=== PATIENT | male | born 1945 | race Caucasian/White ===

== ENCOUNTER 2021-05-21 13:17 | Emergency (ER) | payer MEDICARE, SELFPAY ==
--- NOTE | ~2021-05-21 | XR_ITS ---
EXAMINATION: XR chest 2V DATE: 05/21/2021 13:51 INDICATION: Cough TECHNIQUE: PA and lateral views of the chest were obtained. COMPARISON: None FINDINGS: The lungs are clear with no focal airspace opacities, pulmonary edema, pleural effusion or pneumothor ax. The cardiomediastinal silhouette is normal. Mild thoracic spondylosis. IMPRESSION: 1. No acute cardiopulmonary disease. Reviewed, dictated and finalized at location A. T AND PEDIATRIC NEUROLOGIST
[2021-05-21 13:29] VITALS: BP 124/63; PULSE 65; RESP 18; TEMP 36.3; O2SAT 99
--- NOTE | 2021-05-21 13:43 | ED.GENADULT ---
HPI - General Adult General Chief complaint: Upper Respiratory Infection Stated complaint: congestion,cough Time Seen by Provider: 05/21/21 13:22 Source: patient Mode of arrival: ambulatory Limitations: no limitations History of Present Illness HPI narrative: Patient presents for evaluation of productive cough of green sputum. Two days ago he had a sore throat and some postnasal drainage. He states symptoms progressively worsened. He reports orthopnea. No fever, chills, nausea, vomiting, diarrhea. He had some right sided chest pain that he describes as angina about two weeks ago, but has not had any since that time. He has an underlying hx of hypertension, hyperlipidemia, diabetes, CAD status post CT and 2 stents approximately 23 years ago. 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 He took a home COVID test yesterday which was negative. He has never had COVID before. He has received both doses of his [employer] COVID vaccine. No recent sick contacts to his knowledge. He is not taking any medications to assist with his symptoms. He does not smoke. He states he has had pneumonia in past so came in for further evaluation. Related Data Home Medications Medication Instructions Recorded Confirmed aspirin [Adult Low Dose Aspirin] 81 mg PO DAILY 05/19/21 05/21/21 atorvastatin 80 mg PO HS 05/19/21 05/21/21 cholecalciferol (vitamin D3) 25 mcg PO DAILY 05/19/21 05/21/21 hydrochlorothiazide 25 mg PO DAILY 05/19/21 05/21/21 latanoprost 1 drp EACH EYE HS 05/19/21 05/21/21 losartan 100 mg PO DAILY 05/19/21 05/21/21 metformin 500 mg PO BID 05/19/21 05/21/21 nifedipine 60 mg PO DAILY 05/19/21 05/21/21 propranolol 40 mg PO BID 05/19/21 05/21/21 Allergies Allergy/AdvReac Type Severity Reaction Status Date / Time lisinopril Allergy Mild Sinus cold Verified 05/21/21 13:47 Review of Systems Review of Systems: CONSTITUTIONAL: Denies fever, chills, or sweats. EYES: Denies visual changes, redness, or discharge. ENT: Reports sinus congestion, postnasal drainage, sore throat. CARDIOVASCULAR: Reports recent chest pain, none currently. Denies palpitations, or edema. RESPIRATORY: Reports cough and orthopnea GASTROINTESTINAL: Denies abdominal pain, nausea, vomiting, or diarrhea. GENITOURINARY: Denies dysuria or hematuria. SKIN: Denies rash or itching. MUSCULOSKELETAL: Reports mild body aches NEUROLOGIC: Denies headache, numbness, dizziness, or weakness. PSYCHIATRIC: Denies anxiety or depression. [facility] Past Medical History Medical History (Updated 05/21/21 @ 14:11 by CALEB TateP, ) Abnormal colonoscopy 12/20 2 polyps Repeat 12/23 Coronary artery disease Diabetes Hyperlipidemia Hypertension Myocardial infarction Surgical History Surgical History History of heart artery stent Family History Family History Mother Family history non-contributory Social History Social History Smoking status: Never smoker Alcohol intake: current Drinks per week: 1 Substance use: never Living arrangements: with family Gender identity (if verbalized by the patient): Male Sexual Orientation (if Verbalized by the Patient): Straight or Heterosexual Spiritual care concerns: No Exam Narrative: GENERAL: Well-appearing, well-nourished, and in no acute distress. HEAD: Normocephalic, atraumatic. EYES: PERRLA and EOMI. ENT: Nares clear, no rhinorrhea or epistaxis. Mucous membranes moist. Mild posterior pharyngeal erythema. Oropharynx without tonsillar hypertrophy exudate or other lesions. Bilateral TMs pearly perez nonbulging NECK: Supple. No adenopathy or masses. No carotid bruits or JVD CHEST: Clear to auscultation. No respiratory distress. No wheezes rales or rhonchi HEART: Regular rate and rhythm. No murmur heard. Normal peripheral
== END 2021-05-21 14:15 | disposition home or self-care (01) ==
PROVIDERS: Emergency Provider Nurse Practitioner; PCP Family Medicine Adolescent Medicine
DX: J06.9 Acute upper respiratory infection, unspecified (principal); Z20.822 Contact with and (suspected) exposure to COVID-19; E11.9 Type 2 diabetes mellitus without complications; I25.10 Atherosclerotic heart disease of native coronary artery without angina pectoris; E78.5 Hyperlipidemia, unspecified; I10 Essential (primary) hypertension; I25.2 Old myocardial infarction; Z79.82 Long term (current) use of aspirin
CPT/HCPCS: 71046; 87081; 87426; 87880; 99213; C9803; G0463

== ENCOUNTER 2021-06-09 01:39 | Day surgery (SDC) | payer MEDICARE, SELFPAY ==
--- NOTE | 2021-05-19 14:39 | PC.NURSE ---
Report to the Outpatient Waiting Room, entrance under the green pavilion located off [facility], at time __1130 on date _05/26/21 . OR Time: __1230 . - You and your visitor will be asked a series of questions to screen for COVID 19 for your protection. - A mask is required within the hospital. Preoperative COVID Testing Requirements: No COVID Test needed if: (proof is required; if not received patient will have Rapid Test prior to entry) - Patient has received COVID Vaccine at least 14 days prior to procedure date or - Patient has positive COVID test result within last 90 days of surgery date. COVID Test needed if above criteria is not met If not COVID vaccinated a COVID test must be conducted within 72 hours of surgery and patient is asked to isolate self from time of testing until procedure. You will go to the [employer] [facility] for your COVID testing. The [employer] [facility] is located at the corner of [address] [facility]. You will only be called if COVID results are positive and your surgeon may reschedule your elective surgery date. -LIGHT BREAKFAST IN THE MORNING Take the following medications with a SIP of water the morning of surgery: ____ALL ROUTINE AM MEDICATIONS Medications to discontinue per physician NONE Date to take last dose Please no make-up, nail german, hairspray, perfume, deodorant, or body powder the day of surgery. No jewelry (including any body piercings) or valuables the day of surgery, leave them at home. Please take a shower or bath the night before, or the morning of, surgery with an antibacterial soap. Wear comfortable, loose fitting clothing. Children are encouraged to wear pajamas. - Jewelry must be removed prior to entering the operating room. Rings and piercings that are not removed may be cut off. - The hospital will not accept responsibility for valuables. - Please leave all valuables, including medications, at home the day of surgery. LOCAL ANESTHESIA-MAY DRIVE YOURSELF HOME For Pediatric surgeries, we recommend two adults accompany the child home (only one inside the building at this time). One visitor will be allowed to accompany the patient into the hospital. Patients visitor will be instructed to remain with patient at all times or leave the building. We will allow the visitor to come back to the postoperative area when patient is ready. Follow any additional instructions given to you from your surgeon. Telephone instructions given to ____PATIENT and asked if any additional questions and then verbalized understanding. Patient advised to call surgeon office or pre surgery nurse liaison [phone] if any additional questions.
[2021-05-19 14:42] VITALS: BMI 29.5
--- NOTE | 2021-06-01 10:55 | PC.NURSE ---
Report to the Outpatient Waiting Room, entrance under the green pavilion located off [facility], at time __10:00am on date 06/09/21 . OR Time: __11:00am . - You and your visitor will be asked a series of questions to screen for COVID 19 for your protection. - A mask is required within the hospital. Preoperative COVID Testing Requirements: No COVID Test needed if: (proof is required; if not received patient will have Rapid Test prior to entry) - Patient has received COVID Vaccine at least 14 days prior to procedure date or - Patient has positive COVID test result within last 90 days of surgery date. COVID Test needed if above criteria is not met If not COVID vaccinated a COVID test must be conducted within 72 hours of surgery and patient is asked to isolate self from time of testing until procedure. You will go to the [employer] [facility] for your COVID testing. The [employer] [facility] is located at the corner of [address] [facility]. You will only be called if COVID results are positive and your surgeon may reschedule your elective surgery date. Patients may have clear liquids (water, carbonated beverages, clear teas, apple juice) until 3 hours prior to surgery with a maximum of 20 ounces. - No food from midnight until time of surgery *LIGHT BREAKFAST MORNING OF SURGERY* - Infants may have breast milk until 4 hours before surgery, formula 6 hours prior to surgery. - Children will be allowed to drink immediately following surgery. If applicable, please bring a bottle or sippy cup to assist with drinking. Juice, water, soda, and popsicles are readily available. For infants on formula, please bring formula the day of surgery. Pacifiers are allowed. Take the following medications with a SIP of water the morning of surgery: ___ALL AM MEDS Medications to discontinue per physician NONE Date to take last dose Please no make-up, nail israeli, hairspray, perfume, deodorant, or body powder the day of surgery. No jewelry (including any body piercings) or valuables the day of surgery, leave them at home. Please take a shower or bath the night before, or the morning of, surgery with an antibacterial soap. Wear comfortable, loose fitting clothing. Children are encouraged to wear pajamas. - Jewelry must be removed prior to entering the operating room. Rings and piercings that are not removed may be cut off. - The hospital will not accept responsibility for valuables. - Please leave all valuables, including medications, at home the day of surgery. If you are going home after surgery, a licensed mobile lounge driver or operator must drive you home. MAY DRIVE SELF HOME-LOCAL ANESTHESIA ONLY - NO public transportation without another adult. - We recommend that an adult stay with you for 24 hours following discharge. - We also recommend that you do not drive, make important decision, drink alcoholic beverages, or take any drugs that were not prescribed by your health care provider for at least 24 hours after your discharge time. For Pediatric surgeries, we recommend two adults accompany the child home (only one inside the building at this time). One visitor will be allowed to accompany the patient into the hospital. Patients visitor will be instructed to remain with patient at all times or leave the building. We will allow the visitor to come back to the postoperative area when patient is ready. Follow any additional instructions given to you from your surgeon. Telephone instructions given to __PATIENT and asked if any additional questions and then verbalized understanding. Patient advised to call surgeon office or pre surgery nurse liaison [phone] if any additional questions.
[2021-06-09] VITALS (12 sets, daily range): BP systolic 127–151; BP diastolic 64–87; PULSE 57–62; RESP 16; TEMP 36.2; O2SAT 95–99
--- NOTE | 2021-06-09 07:10 | WPDHPUPDATE1 ---
History and Physical Update Update Date/Time: 06/09/21 07:10 History and Physical has been reviewed, including an updated exam of the patient. There are NO changes in the patient's condition. Risks, benefits, and alternatives have been discussed and questions answered. Patient agrees to proceed with procedure.
--- NOTE | 2021-06-09 08:32 | SUR.OPER ---
frozen section sent with Yessy WONG and received in pathology by Becca
--- NOTE | 2021-06-09 14:47 | W.PM.PROC2 ---
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 Post-op Diagnosis Same Procedure Performed 4 cm single specimen excision of SCC and SCIS of the nasal lobule and tip, with FS and complex repair 4.5 cm Surgeon Michael Faustin MD Operator And Truck Driver Preeti Acuña Anesthesia Local Indications Previous biopsy at both sites. Description of Procedure As the patient waited in the holding area the sites on his nose were marked with a pen. He agreed with those. They are very close together within a cm each other lying near the midline of the nose. He was rolled to the operating room where he was placed supine on the operating table. The face was prepped and draped in usual fashion. The tumor sites were carefully marked with a pen. His eyes were protected from lights with towels. The area was widely infiltrated with 1% lidocaine with epinephrine. During the procedure 2 or 3 times he expressed pain with use of cautery and additional lidocaine was infiltrated. Eventually he had no more discomfort. A careful excision was carried out encompassing the 2 longitudinally related biopsy areas. This excision was approximately 1 cm in maximum width tapering at both ends. The dissection was carried out to the base of the subcutaneous tissue. The specimen was marked with the suture at the caudal tip and sent for frozen section. The pathologist reported that there was a small focus of squamous cell carcinoma at the most caudal tip. A further excision widening and lengthening the tip was taken out and that specimen was sent to pathology for permanent section. Closure was accomplished by widely undermining the skin of both sides. This extended a cm and cm half on both sides running the length of the wound. By doing that we were able to approximate the wound margins with intradermal 4-0 Vicryl to close this wound essentially down the midline. The patient reported that he could breathe well through his nares when the approximation was completed. A dog ear was taken out at the cephalad end over the nasal bridge to improve contour. The skin was then closed with a running 6 0 nylon without difficulty. Estimated Blood Loss 10 Drains No Packing No Pathology Yes Complications No immediate complications Condition Stable Disposition Same day
== END 2021-06-09 09:36 | disposition home or self-care (01) ==
PROVIDERS: PCP Family Medicine Adolescent Medicine; Visit Provider Plastic Surgery
PROC: (CPT 13152; principal; 2021-06-09 07:30)
DX: C44.321 Squamous cell carcinoma of skin of nose (principal); L57.0 Actinic keratosis; Z79.82 Long term (current) use of aspirin; Z79.84 Long term (current) use of oral hypoglycemic drugs
CPT/HCPCS: 13152; 11644; 88305; 88331; 88332; A9270

== ENCOUNTER 2022-08-24 11:10 | Emergency (ER) | payer MEDICARE, SELFPAY ==
--- NOTE | ~2022-08-24 | XR_ITS ---
Cervical Spine: AP, lateral, oblique, open-mouth views Clinical History: Pain Findings: There is straightening of the normal cervical lordosis. No fracture or subluxation evident. There is advanced degenerative disc narrowing C5-C6. There is mild to moderate degenerative disc maria luz nge throughout the remainder of the cervical spine. There is mild facet arthropathy throughout most o f the cervical spine. Pre-vertebral soft tissues are unremarkable. Impression: Mild to moderate degenerative spondylosis, as above. Reviewed, dictated and finalized at location M. Impression: Mild to moderate degenerative spondylosis, as above.
--- NOTE | 2022-08-24 11:15 | ED.BACK ---
HPI - Back Pain/Injury General Chief Complaint: Neck Pain/Injury Stated Complaint: Neck Pain Time Seen by Provider: 08/24/22 11:39 Source: patient and RN notes reviewed Mode of arrival: ambulatory Limitations: no limitations History of Present Illness HPI Narrative: 76 year old male presents with concern for my pain that radiates to the right trapezius area. He reports he was gardening prior to onset of pain. Reports he felt his neck pop while gardening and lifting a heavy bag of rocks. He reports he did not have pain at that time. Reports he woke up the next day with pain in his neck. He reports he cannot turn his head to the right or the left without pain. Reports pain is less if he standing up. Reports he has been taking Tylenol and using a pain patch. He denies any weakness in any extremity. He denies change in numbness, tingling in the hands or fingers, he does have neuropathy. Patient reports similar problem that he was seen in the ER 4 years ago, had normal CT scan. Reports he took muscle relaxers and pain medicine used warm compresses and that pain eventually went away. MD elicited complaint: other (neck pain) Related Data Home Medications Medication Instructions Recorded Confirmed aspirin 81 mg tablet 81 mg PO HS 05/19/21 08/24/22 atorvastatin 80 mg tablet 80 mg PO HS 05/19/21 08/24/22 cholecalciferol (vitamin D3) 25 25 mcg PO DAILY 05/19/21 08/24/22 mcg (1,000 unit) tablet hydrochlorothiazide 25 mg tablet 25 mg PO DAILY 05/19/21 08/24/22 latanoprost 0.005 % eye drops 1 drp EACH EYE HS 05/19/21 08/24/22 losartan 100 mg tablet 100 mg PO DAILY 05/19/21 08/24/22 metformin 500 mg tablet 500 mg PO BID 05/19/21 08/24/22 nifedipine 60 mg tablet,extended 60 mg PO DAILY 05/19/21 08/24/22 release 24 hr Allergies Allergy/AdvReac Type Severity Reaction Status Date / Time lisinopril Allergy Mild Sinus cold Verified 08/24/22 11:30 Erythromycin Allergy Unknown Uncoded 08/24/22 11:31 Review of Systems Review of Systems: CONSTITUTIONAL: Denies malaise, chills, sweats, or fever. CARDIOVASCULAR: Denies chest pain, palpitations, or edema. RESPIRATORY: Denies cough or dyspnea. GASTROINTESTINAL: Denies abdominal pain, nausea, vomiting, diarrhea, loss of bowel function GENITOURINARY: Denies dysuria, hematuria, frequency, loss of bladder function. SKIN: Denies rash or itching. MUSCULOSKELETAL: Reports neck pain NEUROLOGIC: Denies numbness, weakness, or headache. All systems reviewed & are unremarkable except as noted in HPI and below PMFSH Past Medical History Medical History (Updated 08/24/22 @ 12:43 by Karen Arita NP) Abnormal colonoscopy 12/20 2 polyps Repeat 12/23 Myocardial infarction Surgical History Surgical History History of heart artery stent Family History Family History Mother Family history non-contributory Social History Social History Smoking status: Never smoker Alcohol intake: current Drinks per week: 1 Substance use: never Living arrangements: with family Gender identity (if verbalized by the patient): Male Sexual Orientation (if Verbalized by the Patient): Straight or Heterosexual Spiritual care concerns: No Comments At time of signature, agree with nursing past medical, surgical, social and family history. There is no relevant family history pertinent to the presenting complaint Exam Narrative: GENERAL: Well-appearing, well-nourished, and in no acute distress. HEAD: Normocephalic, atraumatic. EYES: PERRLA and EOMI. NECK: Supple. No lymphadenopathy. CHEST: Clear to auscultation. No respiratory distress. HEART: Regular rate and rhythm. Distal pulses palpable and equal, cap refill <3 seconds MUSCULOSKELETAL: Normal range of motion and strength in all extremities; 5/5 bilateral u
[2022-08-24 11:19] VITALS: BP 144/65; PULSE 57; RESP 18; TEMP 36.3; O2SAT 100
[2022-08-24 12:50] VITALS: PULSE 82; RESP 18; O2SAT 99
== END 2022-08-24 12:50 | disposition home or self-care (01) ==
PROVIDERS: Emergency Provider Nurse Practitioner; PCP Family Medicine Adolescent Medicine
DX: M54.2 Cervicalgia (principal); I25.2 Old myocardial infarction; Z95.5 Presence of coronary angioplasty implant and graft; Z79.82 Long term (current) use of aspirin
CPT/HCPCS: 72050; 99213; G0463

== ENCOUNTER 2023-08-22 13:27 | Outpatient (CLI) | payer MEDICARE, SELFPAY ==
[2023-08-22 14:44] LABS: Anion Gap 5 mmol/L (4-12); Blood Urea Nitrogen 19 mg/dL (9-20); Calcium 8.9 mg/dL (8.4-10.2); Carbon Dioxide 28 mmol/L (22-30); Chloride 106 mmol/L (98-107); Estimated Glomerular Filt Rate 49; Glucose 184 mg/dL (65-110); Potassium 3.4 mmol/L (3.4-5.0); Sodium 139 mmol/L (137-145)
== END 2023-08-22 13:28 | disposition home or self-care (01) ==
PROVIDERS: Anesthesiology; PCP Family Medicine Adolescent Medicine; Visit Provider Plastic Surgery
DX: E11.42 Type 2 diabetes mellitus with diabetic polyneuropathy (principal)
CPT/HCPCS: 36415; 80048

== ENCOUNTER 2023-09-03 04:35 | Day surgery (SDC) | payer MEDICARE, SELFPAY ==
--- NOTE | 2023-08-20 11:26 | PC.NURSE ---
Report to the Outpatient Waiting Room, entrance under the green pavilion located off [facility], at time __6:00 AM on date __09/03/23 . Planned Procedure Time: _7:30 AM . Time changes happen often and if your time is changed the preop area will call you the afternoon before. - You and your visitor will be asked to self-screen and do not enter if you have any COVID symptoms. - A mask is optional within the hospital at this time. Patients may have clear liquids (water, carbonated beverages, clear teas, apple juice) until 3 hours prior to surgery( 4:30 AM) with a maximum of 20 ounces. - No food from midnight until time of surgery - Infants may have breast milk until 4 hours before surgery, infant formula 6 hours prior to surgery. - Children will be allowed to drink immediately following surgery. If applicable, please bring a bottle or sippy cup to assist with drinking. Juice, water, soda, and popsicles are readily available. For infants on formula, please bring formula the day of surgery. Pacifiers are allowed. Take the following medications with a SIP of water the morning of surgery: ___NIFEDIPINE,PROPRANOLOL,ALPRAZOLAM IF NEEDED DO NOT STOP ANY OF YOUR OTHER PRESCRIPTION MEDICATIONS PRIOR TO SURGERY ?EXCEPT THE FOLLOWING Medications to discontinue per physician __MAY CONTINUE ASPIRIN PER DR JEROME. HOLD ALL VITAMINS 3 DAYS PRE OP.LAST DOSE 08/30/23 Date to take last dose Please no make-up, nail french, hairspray, perfume, deodorant, or body powder the day of surgery. No jewelry (including any body piercings) or valuables the day of surgery, leave them at home. Please take a shower or bath the night before, or the morning of, surgery with an antibacterial soap. Wear comfortable, loose fitting clothing. Children are encouraged to wear pajamas. - Jewelry must be removed prior to entering the operating room. Rings and piercings that are not removed may be cut off. - The hospital will not accept responsibility for valuables. - Please leave all valuables, including medications, at home the day of surgery. If you are going home after surgery, a licensed limo driver must drive you home. - NO public transportation without another adult if you receive anesthesia. - We recommend that an adult stay with you for 24 hours following discharge. - We also recommend that you do not drive, make important decision, drink alcoholic beverages, or take any drugs that were not prescribed by your health care provider for at least 24 hours after your discharge time. Follow any additional instructions given to you from your surgeon. If you or anyone in your household have experienced Covid symptoms in the past week, please notify your surgeon or the nurse liaison at the phone number below for possible testing. Telephone instructions given to ___PATIENT and asked if any additional questions and then verbalized understanding. Patient advised to call surgeon office or pre surgery nurse liaison [phone] if any additional questions. Report to the Outpatient Waiting Room, entrance under the green pavilion located off [facility], at time on date . Planned Procedure Time: . Time changes happen often and if your time is changed the preop area will call you the afternoon before. - You and your visitor will be asked to self-screen and do not enter if you have any COVID symptoms. - A mask is optional within the hospital at this time. Patients may have clear liquids (water, carbonated beverages, clear teas, apple juice) until 3 hours prior to surgery with a maximum of 20 ounces. - No food from midnight until time of surgery - Infants may have breast milk until 4 hours before surgery, infant formula 6 hours prior to surgery. - Children will be allowed to drink immediately following surgery. If applicable, please bring a bottle or sippy cup to assist with drin
[2023-08-20 11:34] VITALS: BMI 29.2
[2023-09-03] VITALS (7 sets, daily range): BP systolic 126–145; BP diastolic 61–76; PULSE 51–63; RESP 10–17; TEMP 36.1–36.2; O2SAT 95–100
[2023-09-03 06:43] LABS: Glucose Point of Care 145 mg/dl (65-105)
--- NOTE | 2023-09-03 07:11 | WPDHPUPDATE1 ---
History and Physical Update Update Date/Time: 09/03/23 07:11 History and Physical has been reviewed, including an updated exam of the patient. There are NO changes in the patient's condition. Risks, benefits, and alternatives have been discussed and questions answered. Patient agrees to proceed with procedure.
--- NOTE | 2023-09-03 07:12 | WPDANESEPPF ---
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 with Frozen Section and Full Thickness Skin Graft, Possible Ear Cartilage Graft - Michael Faustin MD Date/Time: 09/03/23 07:12 Surgeon: Michael Faustin MD Pre Op Diagnosis: SCIS Left Tip of Nose Patient Data Age: 77 Gender: M Height: 1.75 m Weight: 86.35 kg Last Vital Signs Temp 96.9 F L 09/03/23 07:00 Pulse 61 09/03/23 07:00 Resp 14 09/03/23 07:00 BP 145/73 H 09/03/23 07:00 Pulse Ox 98 09/03/23 07:00 O2 Del Method Room Air 09/03/23 07:00 Allergies Allergy/AdvReac Type Severity Reaction Status Date / Time lisinopril Allergy Mild Sinus cold Verified 09/03/23 07:13 Home Medications Medication Instructions Recorded Confirmed Type aspirin 81 mg tablet 81 mg PO HS 05/19/21 08/20/23 History atorvastatin 80 mg tablet 80 mg PO HS 05/19/21 08/20/23 History cholecalciferol (vitamin D3) 25 25 mcg PO DAILY 05/19/21 08/20/23 History mcg (1,000 unit) tablet hydrochlorothiazide 25 mg tablet 25 mg PO DAILY 05/19/21 08/20/23 History latanoprost 0.005 % eye drops 1 drp EACH EYE HS 05/19/21 08/20/23 History losartan 100 mg tablet 100 mg PO DAILY 05/19/21 08/20/23 History metformin 500 mg tablet 500 mg PO BID 05/19/21 08/20/23 History nifedipine 60 mg tablet,extended 60 mg PO DAILY 05/19/21 08/20/23 History release 24 hr tamsulosin 0.4 mg capsule 0.4 mg PO DAILY #30 caps 04/09/23 08/20/23 Rx propranolol 40 mg tablet 40 mg PO BID #180 tabs 06/06/23 08/20/23 Rx alprazolam 0.25 mg tablet 0.25 mg PO BID #60 tabs 07/31/23 08/20/23 Rx gabapentin 100 mg capsule 100 mg PO PRN PRN Pain 05/20/24 05/20/24 History Laboratory Tests 09/03/23 06:40 POC Capillary Glucose 145 H mg/dl (65-105) Patient hx anesthesia problems: none Family hx anesthesia problems: none Results Review: All pre-operative results and documents have been reviewed as part of the pre-operative evaluation. [facility] Past Medical History Medical History (Updated 09/06/22 @ 15:05 by Rafa Nevarez MD) Abnormal colonoscopy 12/20 2 polyps Repeat 12/23 Acute prostatitis Myocardial infarction Surgical History Surgical History History of heart artery stent Family History Family History Mother Family history non-contributory Social History Social History Smoking status: Never smoker Alcohol intake: current Drinks per week: 2 Substance use: never Living arrangements: with family Gender identity (if verbalized by the patient): Male Sexual Orientation (if Verbalized by the Patient): Straight or Heterosexual Spiritual care concerns: No Anes - Eval Final PreProcedure Day of Procedure 09/03/23 07:12 Patient weight: obese Heart: regular rate and rhythm Lungs: clear to auscultation Neurological: alert and oriented Last oral intake: >/= 8 hours ASA classification: III Emergent: no Anesthetic plan: proceed Anesthesia type and monitoring: general GIVS (use LMA) and standard monitoring Results Review: All pre-operative results and documents have been reviewed as part of the pre-operative evaluation. Informed Consent: The patient's anesthetic plan and its attendant risks and benefits were discussed with the patient/family/POA. Questions were solicited and answers provided to the satisfaction of the patient/family/POA.
[2023-09-03] MEDS: LIDO 1%/EPINEPHRINE 1:100,000 50 ML VIAL 12 ML INFILTRATE (07:26)
[2023-09-03] MEDS: BACITRACIN OINTMENT 15 GM TUBE 1 APPLIC TOPICAL (07:26)
[2023-09-03] MEDS: LACTATED RINGERS 1,000 ML 30 ML IV CONT (07:26)
[2023-09-03] MEDS: ceFAZolin 2 GM/D5W 50 ML 2 GM/50 ML BAG IVPB (07:55)
[2023-09-03 09:58] LABS: Glucose Point of Care 153 mg/dl (65-105)
--- NOTE | 2023-09-03 10:06 | W.PM.PROC2 ---
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 1.0 cm Excision SCC of the left nasal ala with FS and 1 sq cm FTSG. Surgeon Michael Faustin MD [employer] Supervisor Maintenance Amber Anesthesia MAC Indications Prior biopsy of SCIS of the tip and SCC of the left nasal ala. Findings Sebaceous hyperplasia at both sites. Description of Procedure The 2 recent biopsy sites on patient's nasal tip and left nasal ala were marked with this consent in the holding area. Sites for skin graft donor were discussed and he understands these may be at either pre mastoid region. He was taken to the operating room and placed supine on the operating table. His entire face and neck on both sides was prepped and draped in usual fashion. Was given IV sedation with LMA. The time-out was held and confirmed. The sites were wiped free of Betadine and estimated margins were marked on the tip and the left nasal ala. These areas were infiltrated with 1% lidocaine with epinephrine. The 1st specimen was taken from the left nasal tip at the caudal end of an existing scar. This was a full-thickness specimen taken into the subcutaneous fat. It was marked at the most superior aspect as 12 o'clock and sent to pathology for frozen section. The pathologist returned a report indicating no tumor present. In the meantime the 2nd specimen was incised from the left nasal ala in similar fashion and taken from the subcutaneous fat layer. The most superior aspect was once again marked for the 12 o'clock position. The specimen was sent to the pathologist for frozen section. The pathologist again returned a report showing no tumor present. In both cases he believes there is sebaceous hyperplasia present. The nasal tip wound was closed by undermining and approximating both wound margins near the midline and reducing standing cones. 4-0 Vicryl was placed intradermally and a running 5 0 nylon closed the skin. The left nasal ala wound was closed with a full-thickness skin graft taken from the left pre mastoid. This was not defatted but placed with the intention of using all the filler available. It was inset with interrupted 5 0 nylon. The donor site was closed with intradermal 4-0 Vicryl and Exofin glue. He was discharged from the operating room in stable condition. The is discharged with instructions in wound care and follow-up. A prescription for doxycycline 100 mg b.i.d. for 5 days was sent to his pharmacy. Estimated Blood Loss 3 Drains No Pathology Yes Complications No immediate complications Condition Stable Disposition PACU
== END 2023-09-03 11:20 | disposition home or self-care (01) ==
PROVIDERS: PCP Family Medicine Adolescent Medicine; Visit Provider Plastic Surgery
PROC: (CPT 11642; principal; 2023-09-03 07:30)
DX: C44.321 Squamous cell carcinoma of skin of nose (principal); D04.39 Carcinoma in situ of skin of other parts of face; I25.2 Old myocardial infarction; Z95.5 Presence of coronary angioplasty implant and graft; Z79.82 Long term (current) use of aspirin; Z79.84 Long term (current) use of oral hypoglycemic drugs; E66.9 Obesity, unspecified; Z68.28 Body mass index [BMI] 28.0-28.9, adult
CPT/HCPCS: 11642; 12052; 11641; 15260; 82948; 88305; 88331; A9270; J0690; J2405; J2704; J3010; J7120